=== PATIENT | female | born 1975 | race Caucasian/White ===

== ENCOUNTER → 2024-01-03 10:09 | Outpatient (REF) | payer OTHER, SELFPAY | LOC: HWRAD 10:09 | PROVIDERS: ATTENDING PHYSICIAN Physician Assistant | DX: M54.16 Radiculopathy, lumbar region (principal) | CPT/HCPCS: 72110 ==

== ENCOUNTER → 2024-02-06 13:30 | Outpatient (REF) | payer OTHER, SELFPAY | LOC: MRI 3T 13:30 | PROVIDERS: ATTENDING PHYSICIAN Physician Assistant | DX: M54.16 Radiculopathy, lumbar region (principal); R20.2 Paresthesia of skin; M51.36 Other intervertebral disc degeneration, lumbar region | CPT/HCPCS: 72148 ==